=== PATIENT | female | born 1950 | race Two or more races ===

== ENCOUNTER 2019-01-11 08:55 | Outpatient (CLI) | payer OTHER | END 2019-01-11 08:59 | disposition home or self-care (01) | LOC: LAB 08:55 | DX: N39.0 Urinary tract infection, site not specified (principal) ==

== ENCOUNTER 2019-02-15 08:15 | Emergency (ER) | payer OTHER ==
[~2019-02-15] VITALS: Ht 160 cm; Wt 59.0 kg
[2019-02-15] MEDS ORDERED: JANUVIA50 MG PO (08:18)
== END 2019-02-15 12:00 | disposition home or self-care (01) ==
LOC: ER 08:15
DX: N39.0 Urinary tract infection, site not specified (principal); B95.4 Other streptococcus as the cause of diseases classified elsewhere

== ENCOUNTER → 2019-02-23 07:45 | Outpatient (CLI) | payer OTHER ==
[~2019-02-23 07:45] MED LIST: JANUVIA50 MG PO
== END | disposition home or self-care (01) ==
LOC: LAB 07:45
DX: N39.0 Urinary tract infection, site not specified (principal)

== ENCOUNTER 2019-07-09 14:49 | Outpatient (CLI) | payer OTHER | END 2019-07-09 14:55 | disposition home or self-care (01) | LOC: LAB 14:49 | DX: N39.0 Urinary tract infection, site not specified (principal) ==

== ENCOUNTER 2019-09-05 17:58 | Emergency (ER) | payer OTHER ==
[~2019-09-05] VITALS: Ht 157.5 cm; Wt 59.4 kg
[2019-09-05] MEDS ORDERED: DIALYVITE 800-1 EAC2 PO (18:08)
[2019-09-05] MEDS ORDERED: PROGESTERONE200 MG PO (18:08)
[2019-09-05] MEDS ORDERED: MINIVELLE1 EAC1 TD (18:08)
== END 2019-09-05 20:30 | disposition home or self-care (01) ==
LOC: ER 17:58
DX: N39.0 Urinary tract infection, site not specified (principal)

== ENCOUNTER 2020-01-14 08:51 | Outpatient (CLI) | payer OTHER ==
[~2020-01-14 08:51] MED LIST changes: +DIALYVITE 800-1 EAC2 PO; +MINIVELLE1 EAC1 TD; +PROGESTERONE200 MG PO
== END 2020-01-14 08:57 | disposition home or self-care (01) ==
LOC: MAMO-SONO 08:51
PROVIDERS: ATTEND Internal Medicine Geriatric Medicine
DX: N60.11 Diffuse cystic mastopathy of right breast (principal); N60.12 Diffuse cystic mastopathy of left breast; Z12.31 Encounter for screening mammogram for malignant neoplasm of breast; N64.4 Mastodynia

== ENCOUNTER 2020-01-22 13:51 | Outpatient (CLI) | payer OTHER | END 2020-01-22 14:09 | disposition home or self-care (01) | LOC: NUCLEAR 13:51 | PROVIDERS: ATTEND Internal Medicine Geriatric Medicine | DX: M81.0 Age-related osteoporosis without current pathological fracture (principal); M15.0 Primary generalized (osteo)arthritis ==

== ENCOUNTER 2020-10-17 20:17 | Emergency (ER) | payer OTHER ==
[~2020-10-17] VITALS: Ht 157.5 cm; Wt 57.6 kg
[2020-10-18] MEDS ORDERED: TAMS0.4C PO (00:54)
[2020-10-18] MEDS ORDERED: CIPRO500 MG PO (00:54)
== END 2020-10-18 04:30 | disposition home or self-care (01) ==
LOC: ER 20:17
DX: N39.0 Urinary tract infection, site not specified (principal); N20.0 Calculus of kidney; R10.2 Pelvic and perineal pain

== ENCOUNTER 2020-10-27 20:31 | Emergency (ER) | payer OTHER ==
[~2020-10-27] VITALS: Ht 157.5 cm; Wt 57.6 kg
[~2020-10-27 20:31] MED LIST changes: +CIPRO500 MG PO; +TAMS0.4C PO
[2020-10-28] MEDS ORDERED: PYRIDIUM DS200 MG PO (02:36)
[2020-10-28] MEDS ORDERED: CEPHALEXIN500 MG PO (02:36)
== END 2020-10-28 02:47 ==
LOC: ER 20:31
DX: R10.2 Pelvic and perineal pain (principal); N39.0 Urinary tract infection, site not specified; Z20.822 Contact with and (suspected) exposure to COVID-19

== ENCOUNTER 2021-06-24 13:07 | Emergency (ER) | payer OTHER ==
[~2021-06-24] VITALS: Ht 157.5 cm; Wt 59.0 kg
[~2021-06-24 13:07] MED LIST changes: +CEPHALEXIN500 MG PO; +PYRIDIUM DS200 MG PO
[2021-06-24] MEDS ORDERED: ZESTRIL2.5 MG PO (14:17)
[2021-06-24] MEDS ORDERED: LIPITOR20 MG PO (14:17)
[2021-06-24] MEDS ORDERED: CELEBREX200MG PO (14:56)
== END 2021-06-24 15:06 | disposition home or self-care (01) ==
LOC: ER 13:07
DX: M25.551 Pain in right hip (principal); E11.9 Type 2 diabetes mellitus without complications; Z79.84 Long term (current) use of oral hypoglycemic drugs

== ENCOUNTER 2022-07-12 13:32 | Outpatient (CLI) | payer OTHER ==
[~2022-07-12 13:32] MED LIST changes: +CELEBREX200MG PO; +LIPITOR20 MG PO; +ZESTRIL2.5 MG PO
== END 2022-07-12 13:33 | disposition home or self-care (01) ==
LOC: NUCLEAR 13:32
PROVIDERS: ATTEND Internal Medicine Geriatric Medicine
DX: M81.0 Age-related osteoporosis without current pathological fracture (principal); M15.0 Primary generalized (osteo)arthritis

== ENCOUNTER 2023-03-31 18:34 | Emergency (ER) | payer OTHER ==
[~2023-03-31] VITALS: Ht 157.5 cm; Wt 60.8 kg
[2023-03-31 20:23] LABS: URINE APPEARANCE Cloudy; URINE BILIRRUBIN Negative (NEGATIVE); URINE COLOR Yellow; URINE GLUCOSE Negative (NEGATIVE)
[2023-03-31 20:24] LABS: PH,URINE 5.5 (5.0-8.0); URINE BLOOD Trace; URINE LEUKOCYTE Large; URINE NITRATE Negative; URINE PROTEIN Negative (NEGATIVE)
[2023-03-31 20:27] LABS: URINE BACTERIA 221.7 uL (0.0-1933); URINE RBC 33.9 uL (0.0-20.8); URINE WBC 1187.1 uL (0.0-23.2)
[2023-03-31] MEDS ORDERED: CEFTRIAXONE SODIUM 1,000 MG VIAL IM STA (21:11)
== END 2023-03-31 21:30 | disposition home or self-care (01) ==
LOC: ER 18:34
PROVIDERS: General Practice
DX: R30.0 Dysuria (principal)
CPT/HCPCS: 96372; 99282; J0696

== ENCOUNTER 2023-11-04 02:08 | Emergency (ER) | payer OTHER ==
[~2023-11-04] VITALS: Ht 157.5 cm; Wt 59.9 kg
[~2023-11-04 02:08] MED LIST changes: +CRESTOR10 MG PO
[2023-11-04] MEDS ORDERED: FARXIGA10 MG PO (02:14)
[2023-11-04] MEDS ORDERED: KETOROLAC TROMETHAMINE 30 MG VIAL IM STA (03:32)
[2023-11-04] MEDS ORDERED: KETOROLAC TROMETHAMINE 30 MG VIAL ONE (03:35)
== END 2023-11-04 03:41 | disposition home or self-care (01) ==
LOC: ER 02:10
DX: R20.2 Paresthesia of skin (principal); E11.9 Type 2 diabetes mellitus without complications; Z79.84 Long term (current) use of oral hypoglycemic drugs
CPT/HCPCS: 96372; 99282; J1885

== ENCOUNTER 2023-12-07 09:45 | Emergency (ER) | payer OTHER ==
[~2023-12-07] VITALS: Ht 157.5 cm; Wt 60.8 kg
[~2023-12-07 09:45] MED LIST changes: +FARXIGA10 MG PO
[2023-12-07] MEDS ORDERED: ACETAMINOPHEN 500 MG GEL..CAP PO STA (10:24)
[2023-12-07] MEDS ORDERED: KETOROLAC TROMETHAMINE 15 MG VIAL IM STA (10:24)
[2023-12-07 11:19] LABS: HEMATOCRIT 41.9 % (36.0-45.00); HEMOGLOBIN 14.6 g/dL (12.0-15.00); MEAN CELL VOLUME 90.6 fL (80.00-100.00); MEAN CORPUSCULAR HEMOGLOBIN 31.5 pg (27.00-32.0); MEAN CORPUSCULAR HGB CONC 34.8 g/dl (32.0-36.0); PLATELET COUNT 203 K/uL (150-450); RED BLOOD COUNT 4.62 M/uL (4.00-6.00); RED CELL DISTRIBUTION WIDTH 13.4 % (11.5-14.5)
[2023-12-07 11:21] LABS: PH,URINE 6.5 (5.0-8.0); URINE APPEARANCE Clear; URINE BILIRRUBIN Negative (NEGATIVE); URINE BLOOD Negative; URINE COLOR Yellow; URINE KETONE Negative (NEGATIVE); URINE LEUKOCYTE Small; URINE NITRATE Negative; URINE PROTEIN Negative (NEGATIVE); URINE UROBILINOGEN 0.2 E.U./dl
[2023-12-07 11:25] LABS: URINE BACTERIA 55.4 uL (0.0-1933); URINE EPITHELIAL CELLS 10.2 uL (0.0-38.8); URINE RBC 5.8 uL (0.0-20.8); URINE WBC 138.2 uL (0.0-23.2)
[2023-12-07 11:27] LABS: URINE GLUCOSE >=1000 MG/DL (NEGATIVE)
[2023-12-07 11:50] LABS: CALCIUM 9.8 mg/dL (8.5-10.1); CREATININE SERUM 0.78 mg/dL (0.55-1.02); GFR 72.39; TSH 1.26 uIU/mL (0.358-3.74)
[2023-12-07] MEDS ORDERED: JANUVIA100 MG PO (13:02)
[2023-12-07] MEDS ORDERED: DUI500 PO (13:02)
[2023-12-07] MEDS ORDERED: ACETAMINOPHEN500 M2 PO (13:02)
[2023-12-07 14:43] VITALS: BP 152/61; O2SAT 98
== END 2023-12-07 14:44 | disposition home or self-care (01) ==
LOC: ER 09:47
PROVIDERS: General Practice
DX: R53.81 Other malaise (principal); R53.83 Other fatigue; R53.1 Weakness; N39.0 Urinary tract infection, site not specified; Z20.822 Contact with and (suspected) exposure to COVID-19; E11.9 Type 2 diabetes mellitus without complications
CPT/HCPCS: 36415; 93005; 96372; 99282; J1885

== ENCOUNTER 2024-01-28 19:42 | Emergency (ER) | payer OTHER ==
[~2024-01-28] VITALS: Ht 162.6 cm; Wt 68.0 kg
[~2024-01-28 19:42] MED LIST changes: +ACETAMINOPHEN500 M2 PO; +DUI500 PO; +JANUVIA100 MG PO
[2024-01-28 22:04] LABS: HEMATOCRIT 42.8 % (36.0-45.00); HEMOGLOBIN 14.1 g/dL (12.0-15.00); MEAN CELL VOLUME 91.5 fL (80.00-100.00); MEAN CORPUSCULAR HEMOGLOBIN 30.1 pg (27.00-32.0); MEAN CORPUSCULAR HGB CONC 32.9 g/dl (32.0-36.0); PLATELET COUNT 268 K/uL (150-450); RED BLOOD COUNT 4.68 M/uL (4.00-6.00); RED CELL DISTRIBUTION WIDTH 13.4 % (11.5-14.5)
[2024-01-28] MEDS ORDERED: ZITHROMAX200 MG PO (22:32)
[2024-01-28] MEDS ORDERED: CEFTRIAXONE SODIUM 1,000 MG VIAL IM STA (22:47)
== END 2024-01-28 23:34 | disposition home or self-care (01) ==
LOC: ER 19:44
DX: S90.812A Abrasion, left foot, initial encounter (principal); W55.03XA Scratched by cat, initial encounter; Y93.89 Activity, other specified; Y92.89 Other specified places as the place of occurrence of the external cause
CPT/HCPCS: 36415; 96372; 99282; J0696